=== PATIENT | female | born 1975 | race Asian ===

== ENCOUNTER 2020-02-04 13:10 | Day surgery (SDC) | payer OTHER, SELFPAY ==
[2020-02-04] VITALS (10 sets, daily range): BP systolic 108–141; BP diastolic 61–90; PULSE 65–75; RESP 10–23; TEMP 36.1–36.9; O2SAT 96–100; BMI 19.2
--- NOTE | 2020-02-04 | DI.RAD.S_ITS ---
PROCEDURE: XR ANKLE LT MIN 3V INDICATIONS: INTRA OPERATIVE LEFT ANKLE TECHNIQUE: Multiple intraoperative fluoroscopic views of the ankle were acquired. COMPARISON: None. FINDINGS: Bones: Intraoperative fluoroscopic images demonstrate ORIF of the left ala. IMPRESSION: Intraoperative fluoroscopic views of ORIF of the left humerus. Dictated by: Shellie Smith M.D. on 02/04/2020 at 20:25 Approved by: Shellie Smith M.D. on 02/04/2020 at 20:26
--- NOTE | 2020-02-04 | DI.RAD.S_ITS ---
PROCEDURE: XR ANKLE LT MIN 3V INDICATIONS: ORIF TALUS BODY FRACTURE TECHNIQUE: 3 views of the ankle were acquired. COMPARISON: SNO Outside Film, CR, XR FOOT 3+ VIEWS LEFT, 01/29/2020, 18:27. SNO Outside Film, CR, XR ANKLE 3+ VIEWS LEFT, 01/27/2020, 17:54. FINDINGS: Bones: Intraoperative C-arm images demonstrate near anatomic alignment status post ORIF of talus fracture with placement of fixation plate and multiple associated fixation screws. Soft tissues: No tibiotalar joint effusion. Achilles tendon appears normal. IMPRESSION: Near anatomic alignment status post ORIF of talus fracture. Dictated by: Chito Tapia [facility] Interpreted: Mckinley Rose MD on 02/04/2020 at 16:58 Approved by: Mckinley Rose M.D. on 02/04/2020 at 17:04
--- NOTE | 2020-02-04 13:43 | PM.PREOP ---
Pre-operative Note COVID-19 COVID-19 status: Negative Interval Note History & Physical reviewed/Exam performed by Physician: Yes Changes to H&P: No
[2020-02-04] MEDS: LACTATED RINGERS 1,000 ML 42 ML IV ×2 (13:55→16:49)
[2020-02-04] MEDS: MIDAZOLAM 2 MG/2 ML VIAL IV (14:20)
--- NOTE | 2020-02-04 14:32 | SUR.PREOP ---
Block start time [1417] . Monitoring initiated and maintained throughout procedure. Oxygen and medications given per anesthesiologist instructions. Patient remained stable throughout procedure, no adverse reactions noted. Block end time [1424].
--- NOTE | 2020-02-04 14:44 | SUR.PREOP ---
Pt to OR, left in stable condition.
[2020-02-04] MEDS: CEFAZOLIN 2 GM/100 ML FROZ.PIGGY IV (14:50)
--- NOTE | 2020-02-04 15:04 | PM.PROC.1 ---
Procedures Date/Time Date of procedure: 02/04/20 Time of procedure: 14:20 Nerve Block Time out performed: Yes Local anesthetic used: other (5mL 2% Lidocaine, 15mL 0.5% Ropivacaine) Location of anesthetic used: lateral popliteal Amount of anesthesia used (mL): 20 Nerve blocks: other (sciatic nerve) Procedure successful: Yes Patient tolerated procedure: well Complications: none Additional comments: LEFT Ultrasound guided lateral popliteal sciatic nerve block for post operative pain management, as discussed with surgeon. Risks, benefits discussed with patient and spouse. Consent verified. Site marked by surgeon. Time out performed. Standard ASA monitors applied, NC O2, 2mg versed. Pt supine. Chloroprep. Sciatic nerve identified proximal to popliteal fossa, at bifurcation. Lidocaine local skin wheal. 100mm x 21g Pajunk needle advanced with in-plane US guidance to nerve. Negative aspiration. 5mL 2% lidocaine and 15mL 0.5% ropivacaine injected with intermittent negative aspiration. Good LA spread noted on US. No pain, no paresthesias. VSS. Tolerated well.
--- NOTE | 2020-02-04 15:30 | SUR.OPER ---
Supine on padded OR bed, head on pillow, arms secured on padded arm boards at <90 degrees abduction, bump under left hip, legs uncrossed, left leg under control of surgeon, safety belt at thigh, tape over blanket over right lower leg.
[2020-02-04] MEDS: BUPIVACAINE 0.25% W/ EPI 30 ML VIAL INJ (15:44)
[2020-02-04] MEDS: ACETAMINOPHEN IV 1,000 MG/100 ML VIAL 400 MG IV (17:15)
[2020-02-04] MEDS: KETOROLAC 30 MG/ML VIAL IV (17:42)
--- NOTE | 2020-02-04 17:50 | P.OP_ITS ---
Operative Date/Time/Diagnoses Date of procedure: 02/04/20 Time of procedure: 15:00 Pre-op diagnosis: Left talus body fracture, displaced [id number] Post-op diagnosis: same Procedure & Clinicians Procedure: Open reduction internal fixation left talus fracture, talar body fracture CPT code 66478 Same procedure as scheduled: Yes Indications: The patient is a 44-year-old female this sustained a left talar body fracture while at a gym. She was indicated for operative treatment of her displaced talar body fracture to reduce the risks of malunion, posttraumatic arthritis and dysfunction. The risks and benefits of the procedure have been discussed with the patient even opportunity to ask questions. The risks of surgery include but are not limited to infection, malunion, nonunion, avascular necrosis, persistence of pain, damage to nerves and blood vessels, posttraumatic arthritis, DVT, PE, cardiopulmonary complications and . The patient expressed a thorough understanding of the risks and benefits of surgery and has elected to proceed. Consent was signed in the office. Patient understands the importance of elevation for the 1st 2 weeks after surgery. She will have 10-12 weeks nonweightbearing on the left for the talus fracture. Surgeon: Kimmy Robin Public Service Officer: Myrna Romeo Anesthesia Type: General, Peripheral nerve block and Local (20 cc 0.25% Marcaine with epinephrine) Operative Notes Findings: Minimally displaced talar body fracture from the proximal part of the neck laterally this extends obliquely in a more proximal direction medially to disrupt the very anterior part of the talar dome. Fracture hematoma was evacuated. Fracture was reduced. Subtalar joint was debrided. Fracture was pinned and then stabilized with a 3 hole lateral talus locking plate from the Green and Nephew set and medially a position 3.0 cancellous screw was placed along the medial column. Closure Type: primary Specimen(s): none sent Applied: implant(s) (Titanium Green and Nephew 3 hole locking lateral talus plate and 2.4 locking screws. 1x 3.0 cancellous screw was used as a position screw for the medial column) Estimated Blood Loss (mL): 20 Blood products transfused: none Tourniquet time (min): 91 Procedure in detail: Patient was seen in the preoperative area the site of surgery marked informed consent confirmed. The patient was brought back to the operating room by the anesthesia team. Regional block was placed by the anesthesia team for postoperative pain control. Patient's left lower extremity was prepped and draped in standard sterile fashion. Ipsilateral thigh bump was placed. A well-padded nonsterile thigh tourniquet was placed. SCD was placed on the contralateral lower extremity. Formal time-out procedure was performed confirming the patient's side and site of surgery administration of appropriate antibiotics. All were in agreement. Mini C-arm was brought in obtaining canal and Broden views before the start of the procedure. This was later changed out for the large C-arm when it became available. Esmarch was used for exsanguination the tourniquet raised on the thigh to 250 mm of mercury stayed up for 91 minutes and was released and not reinflated. A dual incision technique was marked out on the foot with the medial incision medial to the tibialis anterior extending proximally over the anterior part of the medial malleolus and distally to the navicular tuberosity. Incision was taken down the skin subcutaneous tissue. The tibialis anterior was retracted medially. Care was made not to violate the deltoid. The dorsal medial joint capsule was opened exposing fracture hematoma. This was evacuated with suction. This brought us down directly on the medial talar neck and anterior talar body. The fracture was visualized. This was minimally displaced. There is some mild scuffing at the fracture site but the remainder of the articular surface of the talar dome was intact. Dissection was carried and distally to expose to the talonavicular capsule. Attention was then turned laterally for the lateral exposure. Incision along the 4th ray up over the syndesmosis was drawn. This was open from the level of the ankle joint in line with the 4th ray to expose the sinus tarsi incision was taken through the skin. The branch of the superficial peroneal nerve was protected. Inferior extensor retinaculum and sheath over the extensor digitorum brevis was opened. Extensor digitorum brevis was divided longitudinally exposing the sinus tarsi. This exposed the lateral talus well. Again care was taken to maintain blood supplies. Posterior facet of the subtalar joint was exposed and pituitary used to remove some small bony debris was quite medially in the sinus tarsi. Lateral extension of the fracture was cleaned. Fracture hematoma was evacuated. Next with the use of the dental picks fracture was reduced. This was then pinned in place provisionally with K-wires. The reduction was checked on multiple fluoroscopic views including lateral ankle and foot views, canal use, ankle mortise and AP foot views and Broden views. Once appropriate anatomic alignment was obtained a 3 hole Green and Nephew plate was positioned along the lateral talus this was provisionally pinned and then checked on fluoroscopy and adjusted. Was provisionally pinned with olive wires and then fixed with 2.4 locking screws. Attention was then turned back medially where a position 3.0 cancellous screw was placed along the medial column. Once this was completed final multiplanar imaging was obtained in the operating room. This was found to provide excellent reduction and placement of hardware with maintained joints. Ankle had full range of motion. Subtalar inversion eversion was full. There was no crepitus. Wounds were irrigated thoroughly. The tourniquet was released. Hemostasis was achieved. Deep closure was performed with 2 O Vicryl. Subcutaneous closure with 4 0 Monocryl and skin with 4 0 nylon suture. Sterile dressing was placed with Xeroform gauze Webril and bulky King cotton a splint and Stuart wrap. The patient was awoken from anesthesia and taken to recovery room in good condition. There no immediate complications from this procedure. All counts were correct. Complications: none Post-operative Condition: stable Disposition: PACU Plan for aftercare: Nonweightbearing left lower extremity. Elevate above the heart level for the 1st 2 weeks after surgery. First postop appointment will come out of the splint and go into a boot start early range of motion. No weight-bearing 10-12 weeks. Aspirin 81 mg b.i.d. for DVT prophylaxis
--- NOTE | 2020-02-04 18:25 | SUR.PHASEII ---
Pt ready to go, pt dressed and left when ready and in stable condition.
--- NOTE | 2020-02-04 19:13 | SUR.PHASEII ---
Patient c/o mild nausea after IV was removed. Quease provided. Nausea improving per patient.
== END 2020-02-04 19:25 | disposition home or self-care (01) ==
PROVIDERS: PCP Family Medicine; Referring Provider Family Medicine; Visit Provider Orthopaedic Surgery Foot and Ankle Surgery
PROC: (CPT 28445; principal; 2020-02-04 14:45)
DX: S92.122A Displaced fracture of body of left talus, initial encounter for closed fracture (principal); W13.8XXA Fall from, out of or through other building or structure, initial encounter; Y93.44 Activity, trampolining
CPT/HCPCS: 28445; 64450; 73610; 76000; J0131; J0690; J1100; J1885; J2250; J2405; J2704; J3010